=== PATIENT | female | born 1930 | race African-American/Black ===

== ENCOUNTER 2016-05-27 16:16 | Inpatient (IN) | payer MEDICARE, OTHER ==
[~2016-05-27] VITALS: Ht 162.6 cm; Wt 55.8 kg
[~2016-05-27 16:16] MED LIST: ASPI81 PO; BUME1TAB30 PO; CARV3 PO; CHOL2000 PO; CLOP75 PO; DSS100 PO; FLUT110HFA IH; LEVO25TA9 PO; MAGOX PO; RANI150T7 PO; ROSU20 PO; TIOT185 IH
[2016-05-27] MEDS ORDERED: ZARO2.5 PO (16:28)
[2016-05-27] MEDS ORDERED: POTA8CAP17 PO (16:28)
[2016-05-27 16:37] LABS: GLUCOSE,POINT OF CARE 115 MG/DL (70-110)
[2016-05-27 17:12] LABS: EOSINOPHILS # (AUTO) 0.03 K/uL (0.00-0.70); EOSINOPHILS % (AUTO) 0.57 % (1.0-6.0); HEMOGLOBIN 12.8 g/dL (12.0-16.0); LYMPHOCYTES # (AUTO) 0.1 K/uL (1.0-4.8); LYMPHOCYTES % (AUTO) 2.3 % (22.0-44.0); MEAN CORPUSCULAR HGB CONC 32.1 G/dL (31.0-37.0); MEAN CORPUSCULAR VOLUME 84 fL (80-100); MONOCYTES # (AUTO) 0.2 K/uL (0.1-1.0); NEUTROPHILS # (AUTO) 4.6 K/uL (1.8-7.7); PLATELET COUNT (AUTO) 179 K/uL (150-450); RED BLOOD CELL COUNT(AUTO) 4.76 MIL/uL (4.00-5.20); RED CELL DISTRIBUTION WIDTH 22.8 % (11.5-14.5); WHITE BLOOD COUNT (AUTO) 4.9 K/uL (4.5-11.0)
[2016-05-27 17:17] LABS: NEUTROPHILS % (AUTO) 93.1 % (40.0-70.0)
[2016-05-27 17:18] LABS: ALANINE AMINOTRANSFERASE 12 U/L (12-78); ALBUMIN 2.4 g/dL (3.4-5.0); ANION GAP 10 mmol/L (8-16); ASPARTATE AMINOTRANSFERASE 11 U/L (15-37); BILIRUBIN,TOTAL 2.5 mg/dL (0.1-1.0); CALCIUM, TOTAL 9.7 mg/dL (8.8-10.5); CARBON DIOXIDE 33 mmol/L (22-29); CREATINE KINASE, TOTAL 9 U/L (26-192); CREATININE 2.12 mg/dL (0.60-1.30); GLOMERULAR FILTR. RATE CALC 27 mL/min (>60); SODIUM SERUM 143 mmol/L (136-145); TOTAL PROTEIN, SERUM 6.8 g/dL (6.4-8.2)
[2016-05-27 17:20] LABS: INR 1.2 (0.9-1.1); PROTHROMBIN TIME 12.2 SEC (9.4-11.6)
[2016-05-27 17:22] LABS: CHLORIDE 100 mmol/L (98-107)
[2016-05-27 17:27] LABS: POTASSIUM 2.3 mmol/L (3.5-5.1); UREA NITROGEN, BLOOD 116 mg/dL (7-18)
[2016-05-27 17:39] LABS: RBC MORPHOLOGY COMMENT ABNORMAL RBC MORPH
[2016-05-27 17:53] LABS: B-TYPE NATRIURETIC PEPTIDE 927 pg/mL (0-100)
[2016-05-27] MEDS ORDERED: SODIUM CHLORIDE 0.9% 1,000 ML IV ONE ×2 (18:00→18:15)
[2016-05-27] MEDS: POTASSIUM CHL 10 MEQ/WATER 50 ML IV SCH ×5 (18:18→21:00)
[2016-05-27] MEDS ORDERED: 0.9% SODIUM CHLORIDE 10 ML SYRINGE IVP PRN (19:30)
[2016-05-27] MEDS ORDERED: ONDANSETRON HCL 4 MG/2 ML VIAL IVP PRN (19:30)
[2016-05-27] MEDS ORDERED: ACETAMINOPHEN 325 MG TABLET PO PRN (19:30)
[2016-05-27 20:27] VITALS: BP 116/66
[2016-05-27] MEDS ORDERED: POTASSIUM CHLORIDE 20 MEQ ER TABLET PO ONE (22:00)
[2016-05-27 23:43] VITALS: BP 121/64
[2016-05-28] MEDS ORDERED: POTASSIUM CHLORIDE 20 MEQ ER TABLET PO ONE ×2 (02:00→10:30)
[2016-05-28 04:34] VITALS: BP 111/81
[2016-05-28] MEDS: LEVOTHYROXINE SODIUM 25 MCG TABLET PO SCH (06:01)
[2016-05-28 07:31] VITALS: BP 104/68
[2016-05-28] MEDS ORDERED: POTASSIUM CHLORIDE 20 MEQ ER TABLET PO PRN ×2 (08:00)
[2016-05-28] MEDS: RANITIDINE HCL 150 MG TABLET PO SCH ×2 (08:37→20:05)
[2016-05-28] MEDS: BUMETANIDE 1 MG TABLET PO SCH (08:37)
[2016-05-28] MEDS: ASPIRIN 81 MG CHEWABLE TABLET PO SCH (08:38)
[2016-05-28] MEDS: METOLAZONE 2.5 MG TABLET PO SCH (08:38)
[2016-05-28] MEDS: CARVEDILOL 3.125 MG TABLET PO SCH (08:38)
[2016-05-28] MEDS: PANTOPRAZOLE SODIUM 40 MG DR TABLET PO SCH (08:38)
[2016-05-28] MEDS: CLOPIDOGREL BISULFATE 75 MG TABLET PO SCH (08:38)
[2016-05-28] MEDS: CHOLECALCIFEROL (VIT D3) 2,000 UNITS TABLET PO SCH (08:38)
[2016-05-28] MEDS: MAGNESIUM OXIDE 400 MG TABLET PO SCH ×2 (08:39→20:05)
[2016-05-28 09:05] LABS: BASOPHILS % (AUTO) 2.6 % (0.0-2.0); EOSINOPHILS % (AUTO) 1.7 % (1.0-6.0); HEMATOCRIT 42.1 % (36-46); HEMOGLOBIN 13.1 g/dL (12.0-16.0); LYMPHOCYTES # (AUTO) 0.1 K/uL (1.0-4.8); MEAN CORPUSCULAR HEMOGLOBIN 26.5 pg (26.0-34.0); MEAN CORPUSCULAR HGB CONC 31.1 G/dL (31.0-37.0); MEAN CORPUSCULAR VOLUME 85 fL (80-100); MONOCYTES # (AUTO) 0.1 K/uL (0.1-1.0); MONOCYTES % (AUTO) 3.4 % (2.0-9.0); NEUTROPHILS # (AUTO) 3.8 K/uL (1.8-7.7); PLATELET COUNT (AUTO) 159 K/uL (150-450); RED BLOOD CELL COUNT(AUTO) 4.93 MIL/uL (4.00-5.20); RED CELL DISTRIBUTION WIDTH 23.7 % (11.5-14.5); WHITE BLOOD COUNT (AUTO) 4.2 K/uL (4.5-11.0)
[2016-05-28 09:24] LABS: ALBUMIN 2.3 g/dL (3.4-5.0); BILIRUBIN,TOTAL 2.2 mg/dL (0.1-1.0); CALCIUM, TOTAL 9.9 mg/dL (8.8-10.5); CREATININE 2.09 mg/dL (0.60-1.30); POTASSIUM 3.2 mmol/L (3.5-5.1); TOTAL PROTEIN, SERUM 6.7 g/dL (6.4-8.2)
[2016-05-28 09:32] LABS: NEUTROPHILS % (AUTO) 89.3 % (40.0-70.0)
[2016-05-28 10:03] LABS: RBC MORPHOLOGY COMMENT ABNORMAL RBC MORPH
[2016-05-28 11:28] VITALS: BP 110/80
[2016-05-28 12:12] LABS: CREATININE 1.99 mg/dL (0.60-1.30); POTASSIUM 3.5 mmol/L (3.5-5.1)
[2016-05-28 12:13] LABS: CALCIUM, TOTAL 9.5 mg/dL (8.8-10.5)
[2016-05-28 12:24] LABS: HEMOGLOBIN A1C 6.7 % (4.5-6.2)
[2016-05-28 14:29] LABS: APPEARANCE,URINE CLEAR (CLEAR); GLUCOSE, URINE (UA) NEGATIVE (NEGATIVE); KETONES,URINE NEGATIVE (NEGATIVE); LEUKOCYTE ESTERASE ,URINE NEGATIVE (NEGATIVE); OCCULT BLOOD,URINE NEGATIVE (NEGATIVE); PROTEIN,URINE NEGATIVE (NEGATIVE)
[2016-05-28 14:31] LABS: ADD UA MICROSCOPIC NO
[2016-05-28 15:47] VITALS: BP 100/62
[2016-05-28 20:43] VITALS: BP 102/66
[2016-05-28 23:51] VITALS: BP 118/66
[2016-05-29 01:33] LABS: APPEARANCE,URINE CLEAR (CLEAR); GLUCOSE, URINE (UA) NEGATIVE (NEGATIVE); KETONES,URINE NEGATIVE (NEGATIVE); LEUKOCYTE ESTERASE ,URINE NEGATIVE (NEGATIVE); OCCULT BLOOD,URINE MODERATE (NEGATIVE); PROTEIN,URINE NEGATIVE (NEGATIVE)
[2016-05-29 01:35] LABS: ADD UA MICROSCOPIC YES
[2016-05-29 02:21] LABS: SQUAMOUS EPITHELIAL CELL,UR Moderate /LPF (None Seen); WBC,URINE 0-2 /HPF (0-5)
[2016-05-29 05:02] VITALS: BP 104/73
[2016-05-29] MEDS: LEVOTHYROXINE SODIUM 25 MCG TABLET PO SCH (05:08)
[2016-05-29 08:00] VITALS: BP 125/74
[2016-05-29] MEDS: ASPIRIN 81 MG CHEWABLE TABLET PO SCH (10:08)
[2016-05-29] MEDS: RANITIDINE HCL 150 MG TABLET PO SCH ×2 (10:09→20:00)
[2016-05-29] MEDS: CLOPIDOGREL BISULFATE 75 MG TABLET PO SCH (10:09)
[2016-05-29] MEDS: MAGNESIUM OXIDE 400 MG TABLET PO SCH ×2 (10:09→21:00)
[2016-05-29] MEDS: METOLAZONE 2.5 MG TABLET PO SCH (10:09)
[2016-05-29] MEDS: CARVEDILOL 3.125 MG TABLET PO SCH (10:09)
[2016-05-29] MEDS: CHOLECALCIFEROL (VIT D3) 2,000 UNITS TABLET PO SCH (10:09)
[2016-05-29] MEDS: BUMETANIDE 1 MG TABLET PO SCH (10:09)
[2016-05-29] MEDS: PANTOPRAZOLE SODIUM 40 MG DR TABLET PO SCH (10:09)
[2016-05-29] MEDS: AMIODARONE HCL 200 MG TABLET PO SCH ×2 (10:57→16:49)
[2016-05-29 11:38] VITALS: BP 101/77
[2016-05-29] MEDS ORDERED: MAG HYDROX/AL HYDROX/SIMETH 30 ML SUSP UDCUP PO PRN (15:15)
[2016-05-29] MEDS ORDERED: ACETAMINOPHEN 500 MG TABLET PO PRN (15:15)
[2016-05-29] MEDS ORDERED: MORPHINE SULFATE 2 MG/ML SYRINGE IVP PRN (15:15)
[2016-05-29 15:41] VITALS: BP 130/61
[2016-05-29] MEDS ORDERED: ACETAMINOPHEN 325 MG TABLET PO PRN (15:45)
[2016-05-29 18:07] LABS: CALCIUM, TOTAL 9.6 mg/dL (8.8-10.5); CREATININE 1.97 mg/dL (0.60-1.30); MAGNESIUM 2.6 mg/dL (1.80-2.40); PHOSPHORUS 2.6 mg/dL (2.5-4.9); POTASSIUM 3.4 mmol/L (3.5-5.1); THYROID STIMULATING HORMONE 7.72 uIU/mL (0.36-3.74)
[2016-05-29] MEDS ORDERED: POTASSIUM CHLORIDE 10% 40 MEQ/30 ML LIQUID UDCUP PO ONE (18:30)
[2016-05-29 19:55] VITALS: BP 95/48
[2016-05-30] VITALS (9 sets, daily range): BP systolic 67–116; BP diastolic 38–78
[2016-05-30] MEDS: AMIODARONE HCL 200 MG TABLET PO SCH ×2 (00:47→08:00)
[2016-05-30] MEDS: LEVOTHYROXINE SODIUM 25 MCG TABLET PO SCH (05:40)
[2016-05-30] MEDS ORDERED: LEVOTHYROXINE SODIUM 50 MCG TABLET PO SCH (06:30)
[2016-05-30] MEDS ORDERED: LEVOTHYROXINE SODIUM 25 MCG TABLET PO ONE ×2 (07:00→07:15)
[2016-05-30] MEDS ORDERED: SODIUM CHLORIDE 0.9% 500 ML IV ONE ×3 (07:54→12:00)
[2016-05-30] MEDS: CHOLECALCIFEROL (VIT D3) 2,000 UNITS TABLET PO SCH (09:00)
[2016-05-30] MEDS: RANITIDINE HCL 150 MG TABLET PO SCH ×2 (09:00→21:00)
[2016-05-30] MEDS: PANTOPRAZOLE SODIUM 40 MG DR TABLET PO SCH (09:00)
[2016-05-30] MEDS: MAGNESIUM OXIDE 400 MG TABLET PO SCH ×2 (09:00→21:00)
[2016-05-30] MEDS: ASPIRIN 81 MG CHEWABLE TABLET PO SCH (09:00)
[2016-05-30] MEDS: CLOPIDOGREL BISULFATE 75 MG TABLET PO SCH (09:00)
[2016-05-30] MEDS ORDERED: DOPamine HCL/D5W 400 MG/250 ML IV BAG IV ONE (11:14)
[2016-05-30] MEDS ORDERED: SODIUM BICARBONATE [ADULT] 8.4% 50 MEQ/50 ML SYRINGE IVP ONE (11:14)
[2016-05-30] MEDS ORDERED: ATROPINE SULFATE 0.1 MG/ML 10 ML SYRINGE IVP ONE (11:14)
[2016-05-30] MEDS ORDERED: LIDOCAINE HCL/PF 2% 5 ML SYRINGE IVP ONE (11:14)
[2016-05-30] MEDS ORDERED: EPINEPHrine 1:10,000 [1 MG/10 ML] SYRINGE IVP ONE (11:14)
[2016-05-30 11:39] LABS: ABG A-A DIFF O2 353.2 mmHg (10-20.0); ABG BASE EXCESS 8.4 mmol/L (-2.0-3.0); ABG HCO3 31.6 mmol/L (22.0-26.0); ABG OXYHEMOGLOBIN 98.2 % (94.0-100.0); ABG PCO2 41 mmHg (35-45); ABG PH 7.505 (7.35-7.450); TEMPERATURE, FAHRENHEIT, BG 98.6 FAHREN (96.0-98.6)
[2016-05-30 11:40] LABS: ALLEN TEST, BLOOD GAS Positive
[2016-05-30 11:50] LABS: HEMATOCRIT 42.7 % (36-46); HEMOGLOBIN 13.3 g/dL (12.0-16.0); MEAN CORPUSCULAR HEMOGLOBIN 26.4 pg (26.0-34.0); MEAN CORPUSCULAR HGB CONC 31.1 G/dL (31.0-37.0); MEAN CORPUSCULAR VOLUME 85 fL (80-100); PLATELET COUNT (AUTO) 132 K/uL (150-450); RED BLOOD CELL COUNT(AUTO) 5.02 MIL/uL (4.00-5.20)
[2016-05-30] MEDS ORDERED: ALBUMIN HUMAN 25%-12.5GM/50ML 50 ML ONE (11:55)
[2016-05-30] MEDS ORDERED: ALBUMIN HUMAN 25%-12.5GM/50ML 50 ML IV ONE (12:00)
[2016-05-30 12:18] LABS: ALBUMIN 1.8 g/dL (3.4-5.0); BILIRUBIN,TOTAL 2.9 mg/dL (0.1-1.0); CALCIUM, TOTAL 9.5 mg/dL (8.8-10.5); CREATININE 2.45 mg/dL (0.60-1.30); MAGNESIUM 2.8 mg/dL (1.80-2.40); PHOSPHORUS 2.6 mg/dL (2.5-4.9); TOTAL PROTEIN, SERUM 5.4 g/dL (6.4-8.2)
[2016-05-30 12:53] LABS: WHITE BLOOD COUNT (AUTO) 8.2 K/uL (4.5-11.0)
[2016-05-30 12:55] LABS: BAND NEUTROPHILS % (MANUAL) 39 % (1-5); LYMPHOCYTES % (MANUAL) 10 % (22-44); RBC MORPHOLOGY COMMENT ABNORMAL RBC MORPH; TOTAL CELLS COUNTED 100
[2016-05-30] MEDS: PHENYLEPHRINE 200 MG/D5%-WATER 250 ML IV PRN ×2 (13:00→23:11)
[2016-05-30] MEDS ORDERED: SODIUM CHLORIDE 0.9% 1,000 ML IV ONE (15:39)
[2016-05-30] MEDS: DEXTROSE 5%-0.45% SODIUM CHL 1,000 ML IV SCH (17:00)
[2016-05-30] MEDS ORDERED: 0.9% SODIUM CHLORIDE 10 ML SYRINGE IVP PRN (18:45)
[2016-05-31] VITALS: BP 122/59
[2016-05-31 04:00] VITALS: BP 103/65
[2016-05-31 06:16] LABS: HEMATOCRIT 37.3 % (36-46); HEMOGLOBIN 11.9 g/dL (12.0-16.0); MEAN CORPUSCULAR HEMOGLOBIN 27.1 pg (26.0-34.0); MEAN CORPUSCULAR HGB CONC 31.8 G/dL (31.0-37.0); MEAN CORPUSCULAR VOLUME 85 fL (80-100); PLATELET COUNT (AUTO) 127 K/uL (150-450); RED BLOOD CELL COUNT(AUTO) 4.39 MIL/uL (4.00-5.20); RED CELL DISTRIBUTION WIDTH 22.3 % (11.5-14.5); WHITE BLOOD COUNT (AUTO) 9.9 K/uL (4.5-11.0)
[2016-05-31 06:26] LABS: ALBUMIN 1.8 g/dL (3.4-5.0); BILIRUBIN,TOTAL 2.6 mg/dL (0.1-1.0); CALCIUM, TOTAL 9.1 mg/dL (8.8-10.5); CREATININE 2.55 mg/dL (0.60-1.30); MAGNESIUM 2.7 mg/dL (1.80-2.40); POTASSIUM 3.6 mmol/L (3.5-5.1); TOTAL PROTEIN, SERUM 5.3 g/dL (6.4-8.2)
[2016-05-31] MEDS ORDERED: LEVOTHYROXINE SODIUM 50 MCG TABLET PO SCH (06:30)
[2016-05-31] MEDS ORDERED: SODIUM CHLORIDE 0.9% 250 ML IV ONE (07:15)
[2016-05-31 07:55] LABS: BAND NEUTROPHILS % (MANUAL) 26 % (1-5); LYMPHOCYTES % (MANUAL) 4 % (22-44); TOTAL CELLS COUNTED 100
[2016-05-31 08:00] VITALS: BP 108/59
[2016-05-31] MEDS: RANITIDINE HCL 150 MG TABLET PO SCH (08:14)
[2016-05-31] MEDS: DEXTROSE 5%-0.45% SODIUM CHL 1,000 ML IV SCH (08:14)
[2016-05-31] MEDS: CHOLECALCIFEROL (VIT D3) 2,000 UNITS TABLET PO SCH (08:14)
[2016-05-31] MEDS: ASPIRIN 81 MG CHEWABLE TABLET PO SCH (08:14)
[2016-05-31] MEDS: PANTOPRAZOLE SODIUM 40 MG DR TABLET PO SCH (08:14)
[2016-05-31] MEDS: CLOPIDOGREL BISULFATE 75 MG TABLET PO SCH (08:14)
[2016-05-31] MEDS: MAGNESIUM OXIDE 400 MG TABLET PO SCH (08:14)
[2016-05-31] MEDS ORDERED: POTASSIUM CHL 20 MEQ/D5-0.45NS 1,000 ML IV SCH (08:30)
[2016-06-01 12:33] LABS: GLUCOSE,POINT OF CARE 151 MG/DL (70-110)
== END 2016-05-31 11:15 | disposition expired | DRG 291 ==
LOC: EMS 16:18 → 5S 18:54 → ICU 05-30 09:15
PROVIDERS: ADMIT Internal Medicine; ATTEND Internal Medicine
PROC: 05H533Z Insertion of Infusion Device into Right Subclavian Vein, Percutaneous Approach (ICD-10-PCS; principal; 2016-05-30)
PROC: 5A12012 Performance of Cardiac Output, Single, Manual (ICD-10-PCS; 2016-05-31)
PROC: 0BH17EZ Insertion of Endotracheal Airway into Trachea, Via Natural or Artificial Opening (ICD-10-PCS; 2016-05-31)
PROC: 5A1935Z Respiratory Ventilation, Less than 24 Consecutive Hours (ICD-10-PCS; 2016-05-31)
DX: I13.0 Hypertensive heart and chronic kidney disease with heart failure and stage 1 through stage 4 chronic kidney disease, or unspecified chronic kidney disease (principal); A41.9 Sepsis, unspecified organism; E43 Unspecified severe protein-calorie malnutrition; N17.9 Acute kidney failure, unspecified; I47.2 Ventricular tachycardia; E87.0 Hyperosmolality and hypernatremia; E87.6 Hypokalemia; E86.0 Dehydration; I50.9 Heart failure, unspecified; I48.91 Unspecified atrial fibrillation; I25.10 Atherosclerotic heart disease of native coronary artery without angina pectoris; E03.9 Hypothyroidism, unspecified; E11.22 Type 2 diabetes mellitus with diabetic chronic kidney disease; I46.9 Cardiac arrest, cause unspecified; R09.02 Hypoxemia; N05.9 Unspecified nephritic syndrome with unspecified morphologic changes; I25.5 Ischemic cardiomyopathy; R57.0 Cardiogenic shock; E78.00 Pure hypercholesterolemia, unspecified; K21.9 Gastro-esophageal reflux disease without esophagitis; J44.9 Chronic obstructive pulmonary disease, unspecified; I34.0 Nonrheumatic mitral (valve) insufficiency; N18.9 Chronic kidney disease, unspecified; E11.21 Type 2 diabetes mellitus with diabetic nephropathy; T50.2X5A Adverse effect of carbonic-anhydrase inhibitors, benzothiadiazides and other diuretics, initial encounter; Z95.810 Presence of automatic (implantable) cardiac defibrillator; Z99.2 Dependence on renal dialysis; Z98.61 Coronary angioplasty status; Z88.1 Allergy status to other antibiotic agents; Z91.040 Latex allergy status; Z88.2 Allergy status to sulfonamides; Z91.018 Allergy to other foods; Z79.01 Long term (current) use of anticoagulants; Z79.82 Long term (current) use of aspirin; Z79.899 Other long term (current) drug therapy; Z90.710 Acquired absence of both cervix and uterus; Z68.21 Body mass index [BMI] 21.0-21.9, adult
CPT/HCPCS: 76770; 82570; 82805; 82962; 83036; 83735; 84100; 84300; 84443; 84540; 87081; 87324; 87449; 92610; 93005; 93306; 94002; 96360; 97163; 99285; J0171; J0461; J1265; J2370; J3480; J3490; J7030; J7040; J7050; P9047